=== PATIENT | male | born 1985 | race Caucasian/White ===

== ENCOUNTER 2018-04-10 09:21 | Emergency (ER) | payer BC ==
[2018-04-10 09:21] VITALS: BMI 26.4
[2018-04-10 09:41] VITALS: BP 138/84; PULSE 98; RESP 16; TEMP 98.8; O2SAT 100
--- NOTE | 2018-04-10 09:50 | C.PDOC ---
History Of Present Illness 32 year old male with no significant PMHx, presents to the ED for evaluation of chest pain which began yesterday. Patient thinks he pulled a muscle at the gym while lifting weights yesterday. He reports left-sided chest pain that is worse with movement of his left shoulder. He denies shortness of breath, nausea, vomiting, palpitations, sensory changes, direct trauma/injury to the site. Time Seen by Provider: 04/10/18 09:36 Chief Complaint (Nursing): Chest Pain History Per: Patient History/Exam Limitations: no limitations Onset/Duration Of Symptoms: Hrs Current Symptoms Are (Timing): Still Present Severity: Mild Quality: "Pain" Associated Symptoms: denies: Nausea Exacerbating Factors: Movement Additional History Per: Patient Past Medical History Reviewed: Historical Data, Nursing Documentation, Vital Signs Vital Signs: Last Vital Signs Temp 98.8 F 04/10/18 09:38 Pulse 98 H 04/10/18 09:38 Resp 16 04/10/18 09:38 BP 138/84 04/10/18 09:38 Pulse Ox 100 04/10/18 11:08 - Medical History PMH: No Chronic Diseases Surgical History: No Surg Hx Family History: States: No Known Family Hx - Social History Hx Alcohol Use: Yes Hx Substance Use: No - Immunization History Hx Tetanus Toxoid Vaccination: No Hx Influenza Vaccination: No Hx Pneumococcal Vaccination: No Review Of Systems Constitutional: Negative for: Fever, Chills Cardiovascular: Positive for: Chest Pain. Negative for: Palpitations Respiratory: Negative for: Cough, Shortness of Breath Gastrointestinal: Negative for: Nausea, Vomiting Skin: Negative for: Rash Neurological: Negative for: Weakness, Numbness Physical Exam - Physical Exam Appears: Well, Non-toxic, No Acute Distress Skin: Normal Color, Warm, Dry, No Rash Eye(s): bilateral: Normal Inspection Oral Mucosa: Moist Neck: Supple Chest: Symmetrical, No Deformity, Tenderness ((+) TTP over left pectoralis muscle, no erythema/rash) Cardiovascular: Rhythm Regular, No Murmur Respiratory: Normal Breath Sounds, No Rales, No Rhonchi, No Wheezing Extremity: Normal ROM (left shoulder ), No Tenderness, No Deformity, No Swelling Neurological/Psych: Oriented x3 Gait: Steady ED Course And Treatment O2 Sat by Pulse Oximetry: 100 (on RA) Pulse Ox Interpretation: Normal Progress Note: Patient given Motrin PO and reassurred symptoms are muscular in nature. Rxs for Motrin and Flexeril given. Patient instructed to follow up with PMD/clinic in 1-2 days, and understands he should return to ED if symptoms worsen. Reassessment Condition: Improved Disposition Counseled Patient/Family Regarding: Diagnosis, Need For Followup, Rx Given - Disposition Referrals: [facility] [Outside] Disposition: HOME/ ROUTINE Disposition Time: 10:00 Condition: STABLE Additional Instructions: FOLLOW UP WITH YOUR DOCTOR/CLINIC IN 1-2 DAYS USE MEDICATIONS DIRECTED RETURN TO EMERGENCY ROOM IF SYMPTOMS WORSEN Prescriptions: Cyclobenzaprine [Flexeril] 10 mg PO BID PRN #15 tab PRN Reason: Muscle Spasm Ibuprofen [Motrin Tab] 600 mg PO Q6 PRN #30 tab PRN Reason: fever/pain Instructions: Muscle Strain (DC) Forms: General Discharge Instructions, [facility] (Panamanian), Work Excuse Print Language: BENGALI - Clinical Impression Clinical Impression: Left-sided chest wall pain, Pulled muscle - Scribe Statement The provider has reviewed the documentation as recorded by the Scribe (Emily Chirinos) Provider Attestation: All medical record entries made by the Scribe were at my direction and personally dictated by me. I have reviewed the chart and agree that the record accurately reflects my personal performance of the history, physical exam, medical decision making, and the department course for this patient. I have also personally directed, reviewed, and agree with the discharge instructions and disposition.
== END 2018-04-10 10:03 | disposition home or self-care (01) ==
LOC: C.ER 09:21
DX: R07.89 Other chest pain (principal)

== ENCOUNTER 2018-06-04 11:24 | Emergency (ER) | payer BC ==
[2018-06-04 11:24] VITALS: BMI 26.4
[2018-06-04 11:33] VITALS: TEMP 98.4
[2018-06-04 12:39] LABS: URINE AMORPHOUS SEDIMENT RARE /ul (<OCC); URINE BACTERIA RARE (<OCC); URINE BILIRUBIN NEGATIVE (NEGATIVE); URINE BLOOD 3+ (NEGATIVE); URINE CLARITY Hazy (Clear); URINE COLOR Amber (YELLOW); URINE GLUCOSE (UA) NORMAL (Normal); URINE LEUKOCYTE ESTERASE NEG Leu/uL (Negative); URINE PROTEIN 2+ mg/dL (NEGATIVE)
--- NOTE | 2018-06-04 13:59 | US ---
Date of service: 06/04/2018 HISTORY: left testicle pain TECHNIQUE: Realtime sonography through the scrotum with color and doppler flow. COMPARISON: None Available. FINDINGS: RIGHT TESTICLE: Measures 4.6 x 2.1 x 3.8 cm. Homogeneous echotexture. No mass. Normal flow demonstrated. RIGHT EPIDIDYMIS: Normal size, morphology and vascularity. LEFT TESTICLE: Measures 4.7 x 2.3 x 3.7 cm. Homogeneous echotexture. No mass. Normal flow demonstrated. LEFT EPIDIDYMIS: Normal size, morphology and vascularity. HYDROCELE: None. VARICOCELE: None. OTHER FINDINGS: None. IMPRESSION: Unremarkable scrotal ultrasound examination. No evidence of testicular torsion. No evidence of epididymo-orchitis.
--- NOTE | 2018-06-04 14:15 | C.PDOC ---
History Of Present Illness 32 year old male presents to the ED complaining of 1 day history of hematuria and left testicular pain. He denies any trauma, penile discharge, abdominal pain , dysuria or pain on urination. Patient states he is sexually active, and his last intercourse was 2 weeks ago. He denies associated fever or chills. Time Seen by Provider: 06/04/18 12:01 Chief Complaint (Nursing): Male Genitourinary History Per: Patient History/Exam Limitations: no limitations Onset/Duration Of Symptoms: Days (x1) Current Symptoms Are (Timing): Still Present Associated Symptoms: Urinary Symptoms Past Medical History Reviewed: Historical Data, Nursing Documentation, Vital Signs Vital Signs: Last Vital Signs Temp 98.4 F 06/04/18 14:20 Pulse 74 06/04/18 14:20 Resp 20 06/04/18 14:20 BP 121/86 06/04/18 14:20 Pulse Ox 99 06/04/18 14:54 - Medical History PMH: No Chronic Diseases Surgical History: No Surg Hx Family History: States: Unknown Family Hx - Social History Hx Tobacco Use: No Hx Alcohol Use: Yes Hx Substance Use: No - Immunization History Hx Tetanus Toxoid Vaccination: No Hx Influenza Vaccination: No Hx Pneumococcal Vaccination: No Review Of Systems Except As Marked, All Systems Reviewed And Found Negative. Genitourinary: Positive for: Hematuria, Scrotal Pain Physical Exam - Physical Exam Appears: Non-toxic, No Acute Distress Skin: Normal Color, Warm, Dry Head: Atraumatic, Normacephalic Eye(s): bilateral: Normal Inspection Oral Mucosa: Moist Neck: Normal ROM, Supple Chest: Symmetrical Cardiovascular: Rhythm Regular, No Murmur Respiratory: Normal Breath Sounds, No Rales, No Rhonchi, No Wheezing Gastrointestinal/Abdominal: Soft, No Tenderness, No Distention, No Guarding Back: Normal Inspection Male Genital: Normal Inspection (uncircumsized male, testes descended bilaterally), Testicular Tenderness (left-sided), No Testicular Swelling, Other (No penile lesions or signs of infection) Extremity: Bilateral: Atraumatic, Normal Color And Temperature, Normal ROM Neurological/Psych: Oriented x3, Normal Speech, Normal Cranial Nerves Gait: Steady ED Course And Treatment O2 Sat by Pulse Oximetry: 99 - CT Scan/US Testicular US Other Rad Studies (CT/US): Read By Radiologist, Radiology Report Reviewed CT/US Interpretation: Accession No. : [id number]. Patient Name / ID : ISELA RYDERIDY / [id number]. Exam Date : 06/04/2018 13:35:30 ( Approved ). Study Comment : Sex / Age : M / 32Y. Creator : Shahram Cash MD. Dictator : Shahram Cash MD. Predatory Animal Hunter : [employer] Architect : Shahram Cash MD. Approver2 : Report Date : 06/04/2018 13:58:00. My Comment : . Date of service: 06/04/2018. HISTORY: left testicle pain. TECHNIQUE: Realtime sonography through the scrotum with color and doppler flow. COMPARISON : None Available. FINDINGS: RIGHT TESTICLE: Measures 4.6 x 2.1 x 3.8 cm. Homogeneous echotexture. No mass. Normal flow demonstrated. RIGHT EPIDIDYMIS: Normal size, morphology and vascularity. LEFT TESTICLE: Measures 4.7 x 2.3 x 3.7 cm. Homogeneous echotexture. No mass. Normal flow demonstrated. LEFT EPIDIDYMIS: Normal size, morphology and vascularity. HYDROCELE: None. VARICOCELE: None. OTHER FINDINGS: None. IMPRESSION: Unremarkable scrotal ultrasound examination. No evidence of testicular torsion. No evidence of epididymo-orchitis. Medical Decision Making Medical Decision Making: Impression: Hematuria, Left testicular pain Initial Plan: * UA * Urine culture * G/C RNA, TMA * Motrin 600 mg PO * Testicular US Progress/Updates: Ultrasound obtained, and is normal. UA shows hematuria. On reevaluation, patient reports pain has resolved completely and he feels comfortable going home. Patient is stable for discharge home. Advised to follow up with Dr. Chaudhari in 2 days, referral provided. Urine culture and G/C were sent. Disposition Counseled Patient/Family Regarding: Studies Performed, Diagnosis, Need For Followup, Rx Given - Disposition Referrals: Niles Lion MD [Staff Provider] - Disposition: HOME/ ROUTINE Disposition Time: 14:13 Condition: STABLE Additional Instructions: follow up with Dr. Lion within 2 days you must call to make an appointment take medication as needed for pain return to ER if symptoms worsens or progress Prescriptions: Naproxen [Naprosyn] 500 mg PO BID PRN #16 tab PRN Reason: Pain, Moderate (4-7) Sulfamethoxazole/Trimethoprim [Bactrim DS 800 mg-160 mg] 1 tab PO BID #14 tab Instructions: Blood in the Urine (Hematuria), Adult (DC) Forms: [employer] (Urdu), General Discharge Instructions - POA Present On Arrival: None - Clinical Impression Clinical Impression: Hematuria - Scribe Statement The provider has reviewed the documentation as recorded by the Scribe (Luci Edward) Provider Attestation: All medical record entries made by the Scribe were at my direction and personally dictated by me. I have reviewed the chart and agree that the record accurately reflects my personal performance of the history, physical exam, medical decision making, and the department course for this patient. I have also personally directed, reviewed, and agree with the discharge instructions and disposition.
[2018-06-04 14:21] VITALS: BP 121/86; PULSE 74; RESP 20
[2018-06-04 14:49] VITALS: O2SAT 99
== END 2018-06-04 14:34 | disposition home or self-care (01) ==
LOC: C.ER 11:24
DX: R31.9 Hematuria, unspecified (principal)